=== PATIENT | female | born 1955 | race Caucasian/White ===

== ENCOUNTER 2017-03-22 05:59 | Day surgery (SDC) | payer OTHER ==
[~2017-03-22] VITALS: Ht 157.5 cm; Wt 49.9 kg
[~2017-03-22 05:59] MED LIST: MAGN400C3 PO; [UNRECOGNIZED DRUG - CODE] IN
[2017-03-22] MEDS ORDERED: MIDAZOLAM HCL 1MG/1ML-2 ML VIAL ONE (07:21)
[2017-03-22] MEDS ORDERED: fentaNYL CITRATE 100 MCG/2 ML VL ONE (07:21)
[2017-03-22] MEDS ORDERED: LIDOCAINE 2%HCL (LOCAL ANESTH.) INJ 20ML MDV ONE (07:22)
== END 2017-03-22 11:10 | disposition home or self-care (01) ==
LOC: CATH 05:59
PROVIDERS: ATTEND Specialist
DX: I47.1 Supraventricular tachycardia (principal); Z88.0 Allergy status to penicillin
CPT/HCPCS: 93619; C1730; C1894; J1644; J2250; J3010; J7030; 99152; 99153

== ENCOUNTER → 2017-11-29 | Outpatient (CLI) | payer OTHER ==
[~2017-11-29] VITALS: Ht 157.5 cm; Wt 50.8 kg
[~2017-11-29] MED LIST changes: +ADENOSINE 43 MG in GIVE UN-DILUTED 0 ML IV ONE; +ADENOSINE 90 MG/30 ML INJ IV ONE
== END | disposition home or self-care (01) ==
LOC: Rad HDHVI 08:03
PROVIDERS: ATTEND Internal Medicine Cardiovascular Disease
DX: I49.5 Sick sinus syndrome (principal); Z88.0 Allergy status to penicillin
CPT/HCPCS: 78452; 93005; 93306; 96374; 96375; A9500; J0153